=== PATIENT | female | born 1990 | race Caucasian/White ===

== ENCOUNTER → 2019-03-02 | Outpatient (CLI) | payer MEDICAID ==
--- NOTE | 2019-03-02 14:36 | RADIOLOGY REPORT (SQ) ---
EXAM DESCRIPTION: KNEE LEFT 3 VIEWS COMPLETED DATE/TIME: 03/02/2019 2:17 pm REASON FOR STUDY: HYPERMOBILITY SYNDROME (M35.7) R05 COUGH M25.559 PAIN IN UNSPECIFIED HIP M35.7 HYPERMOBILITY SYNDROME COMPARISON: None. NUMBER OF VIEWS: Three views. TECHNIQUE: AP, lateral, and sunrise patella radiographic images acquired of the left knee. LIMITATIONS: None. FINDINGS: MINERALIZATION: Normal. BONES: No acute fracture or dislocation. No worrisome bone lesions. JOINT: No effusion. SOFT TISSUES: No soft tissue swelling. No radio-opaque foreign body. OTHER: No other significant finding. IMPRESSION: NEGATIVE STUDY OF THE LEFT KNEE. NO RADIOGRAPHIC EVIDENCE OF ACUTE INJURY. TECHNICAL DOCUMENTATION: JOB ID: [id number] [employer]- All Rights Reserved Reading location - IP/workstation name: [email or web address]
--- NOTE | 2019-03-02 14:36 | RADIOLOGY REPORT (SQ) ---
EXAM DESCRIPTION: KNEE RIGHT 3 VIEWS COMPLETED DATE/TIME: 03/02/2019 2:17 pm REASON FOR STUDY: HYPERMOBILITY SYNDROME (M35.7) R05 COUGH M25.559 PAIN IN UNSPECIFIED HIP M35.7 HYPERMOBILITY SYNDROME COMPARISON: None. NUMBER OF VIEWS: Three views. TECHNIQUE: AP, lateral, and sunrise patella radiographic images acquired of the right knee. LIMITATIONS: None. FINDINGS: MINERALIZATION: Normal. BONES: No acute fracture or dislocation. No worrisome bone lesions. JOINT: No effusion. SOFT TISSUES: No soft tissue swelling. No radio-opaque foreign body. OTHER: No other significant finding. IMPRESSION: NEGATIVE STUDY OF THE RIGHT KNEE. NO RADIOGRAPHIC EVIDENCE OF ACUTE INJURY. TECHNICAL DOCUMENTATION: JOB ID: [id number] [employer]- All Rights Reserved Reading location - IP/workstation name: [email or web address]
--- NOTE | 2019-03-02 14:36 | RADIOLOGY REPORT (SQ) ---
EXAM DESCRIPTION: CHEST 2 VIEWS COMPLETED DATE/TIME: 03/02/2019 2:17 pm REASON FOR STUDY: COUGH (R05) COMPARISON: None. EXAM PARAMETERS: NUMBER OF VIEWS: two views TECHNIQUE: Digital Frontal and Lateral radiographic views of the chest acquired. RADIATION DOSE: NA LIMITATIONS: none FINDINGS: LUNGS AND PLEURA: No opacities, masses or pneumothorax. No pleural effusion. MEDIASTINUM AND HILAR STRUCTURES: No masses or contour abnormalities. HEART AND VASCULAR STRUCTURES: Heart normal size. No evidence for failure. BONES: No acute findings. HARDWARE: None in the chest. OTHER: No other significant finding. IMPRESSION: NO ACUTE RADIOGRAPHIC FINDING IN THE CHEST. TECHNICAL DOCUMENTATION: JOB ID: [id number] [employer]- All Rights Reserved Reading location - IP/workstation name: [email or web address]
--- NOTE | 2019-03-02 14:37 | RADIOLOGY REPORT (SQ) ---
EXAM DESCRIPTION: SACRUM AND COCCYX COMPLETED DATE/TIME: 03/02/2019 2:17 pm REASON FOR STUDY: HIP PAIN (M25.559), HYPERMOBILITY SYNDROME (M35.7) R05 COUGH M25.559 PAIN IN UNS PECIFIED HIP M35.7 HYPERMOBILITY SYNDROME COMPARISON: None. NUMBER OF VIEWS: Three views. TECHNIQUE: AP, lateral, and tilt views of the sacrum and coccyx. LIMITATIONS: None. FINDINGS: MINERALIZATION: Normal. BONES: No acute fracture or dislocation. No worrisome bone lesions. SOFT TISSUES: No soft tissue swelling. No foreign body. OTHER: No other significant finding. IMPRESSION: NEGATIVE STUDY OF THE SACRUM AND COCCYX. TECHNICAL DOCUMENTATION: JOB ID: [id number] [employer]- All Rights Reserved Reading location - IP/workstation name: [email or web address]
== END ==
LOC: RAD 13:22
PROVIDERS: ATTEND Nurse Practitioner Family
DX: M35.7 Hypermobility syndrome (principal); M25.552 Pain in left hip; M25.551 Pain in right hip; R05 Cough
CPT/HCPCS: 71046; 72220

== ENCOUNTER → 2019-04-06 | Outpatient (CLI) | payer MEDICAID ==
--- NOTE | 2019-04-06 12:47 | RADIOLOGY REPORT (SQ) ---
EXAM DESCRIPTION: CHEST 2 VIEWS COMPLETED DATE/TIME: 04/06/2019 12:27 pm REASON FOR STUDY: R05 COUGH, J45.998 OTHER ASTHMA COMPARISON: 03/02/2019 EXAM PARAMETERS: NUMBER OF VIEWS: two views TECHNIQUE: Digital Frontal and Lateral radiographic views of the chest acquired. RADIATION DOSE: NA LIMITATIONS: none FINDINGS: LUNGS AND PLEURA: No opacities, masses or pneumothorax. No pleural effusion. MEDIASTINUM AND HILAR STRUCTURES: No masses or contour abnormalities. HEART AND VASCULAR STRUCTURES: Heart normal size. No evidence for failure. BONES: No acute findings. HARDWARE: None in the chest. OTHER: No other significant finding. IMPRESSION: No focal airspace disease or other evidence of acute cardiopulmonary process. TECHNICAL DOCUMENTATION: JOB ID: [id number] [employer]- All Rights Reserved Reading location - IP/workstation name: [email or web address]
== END ==
LOC: RAD 11:57
PROVIDERS: ATTEND Nurse Practitioner Family
DX: J45.998 Other asthma (principal); R05 Cough
CPT/HCPCS: 71046

== ENCOUNTER → 2019-04-13 | Outpatient (CLI) | payer MEDICAID ==
[2019-04-13 10:55] LABS: ABSOLUTE EOSINOPHILS # (AUTO) 0.5 10^3/uL (0.0-0.6); ABSOLUTE LYMPHOCYTES (AUTO) 2.9 10^3/uL (0.5-4.7); ABSOLUTE MONOCYTES (AUTO) 0.9 10^3/uL (0.1-1.4); ABSOLUTE NEUT (AUTO) 4.5 10^3/uL (1.7-8.2); BASOPHILS % (AUTO) 0.4 % (0-2); EOSINOPHILS % (AUTO) 5.9 % (0-6); HEMATOCRIT 45.2 % (36.0-47.0); HEMOGLOBIN 15.4 g/dL (12.0-15.5); LYMPHOCYTES % (AUTO) 33.1 % (13-45); MEAN CORPUSCULAR HEMOGLOBIN 34.4 pg (27.0-33.4); MEAN CORPUSCULAR VOLUME 101 fl (80-97); MONOCYTES % (AUTO) 9.9 % (3-13); PLATELET COUNT 228 10^3/uL (150-450); RED BLOOD COUNT 4.48 10^6/uL (3.72-5.28); RED CELL DISTRIBUTION WIDTH 13.8 % (11.5-14.0); SEGMENTED NEUTROPHILS % (AUTO) 50.7 % (42-78); TOTAL CELLS COUNTED % (AUTO) 100 %; WHITE BLOOD COUNT 8.8 10^3/uL (4.0-10.5)
[2019-04-17 00:36] LABS: M001-IGE PENICILLIUM CHRYSOGEN <0.10 kU/L (Class 0); M002-IGE CLADOSPORIUM HERBARUM <0.10 kU/L (Class 0); M003-IGE ASPERGILLUS FUMIGATUS <0.10 kU/L (Class 0); M004-IGE MUCOR RACEMOSUS <0.10 kU/L (Class 0); M005-IGE CANDIDA ALBICANS <0.10 kU/L (Class 0); M006-IGE ALTERNARIA ALTERNATA <0.10 kU/L (Class 0); M009-IGE FUSARIUM PROLIFERATUM <0.10 kU/L (Class 0); M012-IGE AUREOBASIDI PULLULANS <0.10 kU/L (Class 0); M013-IGE PHOMA BETAE <0.10 kU/L (Class 0); M014-IGE EPICOCCUM PURPURASCEN <0.10 kU/L (Class 0)
[2019-04-17 07:16] LABS: M010-IGE STEMPHYLIUM HERBARUM <0.10 kU/L (Class 0)
== END ==
LOC: OD 10:00
PROVIDERS: ATTEND Internal Medicine Pulmonary Disease
DX: J45.909 Unspecified asthma, uncomplicated (principal)
CPT/HCPCS: 36415; 82785; 85025; 86003

== ENCOUNTER → 2019-04-17 | Outpatient (CLI) | payer MEDICAID ==
--- NOTE | 2019-04-17 16:42 | RADIOLOGY REPORT (SQ) ---
EXAM DESCRIPTION: U/S THYROID/SFT TISS HD NECK COMPLETED DATE/TIME: 04/17/2019 2:34 pm REASON FOR STUDY: R94.6 ABNORMAL RESULTS OF THYROID FUNCTION STUDIES R94.6 ABNORMAL RESULTS OF THYR OID FUNCTION STUDIES COMPARISON: None. TECHNIQUE: Dynamic and static hernandez-scale images acquired of the thyroid gland. Selected additional c olor/power Doppler images recorded. All images stored to PACS. LIMITATIONS: None. FINDINGS: RIGHT LOBE: Normal size, 4.7 x 1.4 x 1.4 cm. Homogeneous echotexture. No cystic or solid masses. LEFT LOBE: Normal size, 3.9 x 0.9 x 1.5 cm. Homogeneous echotexture. No cystic or solid masses. ISTHMUS: Normal size, 1 mm. Homogeneous echotexture. No cystic or solid masses. OTHER: No other significant finding. IMPRESSION: NORMAL THYROID ULTRASOUND. TECHNICAL DOCUMENTATION: JOB ID: [id number] [employer]- All Rights Reserved Reading location - IP/workstation name: [email or web address]
== END ==
LOC: RAD 14:07
PROVIDERS: ATTEND Nurse Practitioner Family
DX: R94.6 Abnormal results of thyroid function studies (principal); R49.0 Dysphonia; R05 Cough
CPT/HCPCS: 76536

== ENCOUNTER → 2019-05-03 | Outpatient (CLI) | payer MEDICAID ==
--- NOTE | 2019-05-03 09:12 | ST Modified Barium Swallow ---
Recommendation - Recommendations Recommendations: Recommend alternating bites and sips due to pharyngeal residue of solids. Discussed possible dysphagia treatment with patient. Should patient decide to pursue treatment, she may obtain referral from physician. Recommend continued follow up with GI. Medical Diagnoses - Medical Diagnoses Medical Diagnosis Description & ICD-10 Code(s): pt referred for difficulty swallowing (dysphagia R13.10) Other Medical Diagnoses/Co-Morbidities: per patient report: GERD, asthma, chronic bronchitis ST Modified Barium Swallow - General Date: 05/03/19 Referring Physician: Dr. Henderson Risks/Precautions: None Date of Onset: 04/28/18 - approximate onset date Reason for Referral: difficulty swallowing - History History obtained from: Patient -: Medical - per patient report: is having diffiuclty swallowing, states it's "hard to swallow", more so with solids than liquids. Reports needing to swallow multiple times to clear food from throat. Some coughing with liquids also reported. States this has been ongoing for more than 1 year. Patient also has frequent pneumonia, for which she is currently being treated, as well as chronic asthmatic bronchitis. Medications: per patient report: omeprazole, prednisone, metroprolol, symbacort, methodone, vitamin D, asthma medication Allergies: per patient report: penicillin, sulfa, mobiq, latex, ceclor - Functional Status Prior Functional Status: INDEPENDENT: feeding - independent Current Functional Limitations: feeding - requires multiple swallow to clear - Subjective Patient/caregiver goal(s): better swallow Cognitive-Linguistic Function: WNL Speech Intelligibility: WNL Current Nutritional Means: PO Current PO diet: Regular Current symptoms: Coughing, Pneumonia, c/o Globus sensation Pain: Patient reports, 1/5 - throat pain this day - Objective Assessment: Upright, Left Lateral - Food Trials Used Food trials used: Thin liquids, Pureed, Regular The patient: Was Able to Self Feed - Oral-Motor Skills Dentition: Full Velo-pharyngeal function: Unremarkable Laryngeal Function: hoarse - patient reports sore throat this day - Assessment Oral prep: Normal Labial closure: Adequate Leakage: None Mastication: Adequate Lingual Movement: Normal Oral stage: Normal for this Procedure - Pharyngeal Stage Initiation of Pharyngeal Stage Reflex: Normal Decreased laryngeal elevation: No Reduced Velopharyngeal Closure: no Reduced pressure generation: Yes Pre-swallow pooling in valleculae: None Pre-Swallow pooling in pyriforms: None Reduced Thyro-Hyoid approximation: Yes Reduced epiglottic excursion: Yes Multiple Swallows with: Cleared w/ Liquid Assist Post-swallow residulas vallecular: Moderate Post-Swallow Residuals: Posterior pharyngeal wall - moderate - Fall Risk Assessment Medications/Conditions that increase fall risks include: Antidepressants, sedatives, anti-arrhythmic, diuretic, benzodiazipenes, neuroleptics. BP regulation problems, cardiac problems, balance or gait deficits, neurological problems. Is patient considered at risk for falls: no Fall Risk Actions Taken: No action needed - Behavioral Observations During evaluation process patient: was pleasant, was cooperative, able to answer questions, provided medical history - Treatment / Educational Needs: Treatment/Education Needs: Treatment consisted of patient education on the role of the Speech Pathologist. Patient's plan of care and golas were communicated as well as scheduling and attendance policies. Recommendations for initial home program were shared. Patient demonstrated understanding and verbalized agreement. - Impression/Summary Laryngeal Penetration: No Tracheal Aspiration: no Patient presents with: Pharyngeal stage dysph. - mild Risk of Aspiration: Mild Evaluation and Findings: Patient demonstrated mildly reduced elevation and epiglottic inversion. Paitent demonstrated no aspiration, however, pharyngeal residue was noted with solids, mild for puree and moderate for regular solids. Some clearance with dry swallow seen. Residue cleared well with liquid wash. - Recommendations Solid diet recommendations: Regular Liquid Diet Modification: Thin Pt/Family education and followup with MD: Yes Dysphagia therapy with [employer]: dysphagia therapy - Discussed possible dysphagia therapy with patient to address pharyngeal exercises to increase epiglottic inversion and reduce pharyngeal residue. Should she decide to move forward with therapy, she may obtain a referral from her physician. Reflux Precautions: Taught to Patient Recommended techniques: Fully Upright During Meal, Alternate Bites/Sips Information, Precautions and Recommendations: Patient (Written), Patient (Verbal) - Plan of Care Strategies to optimize patient understanding include:: ongoing assessment of educational needs, implementation of educational strategies, and re-education. - - -: Thank you for the opportunity to work with this patient and his/her family. Should you have any questions about this patient's plan or progress, I can be reached at [phone].
--- NOTE | 2019-05-03 14:13 | RADIOLOGY REPORT (SQ) ---
EXAM DESCRIPTION: COOKIE SWALLOW COMPLETED DATE/TIME: 05/03/2019 9:00 am REASON FOR STUDY: DYSPHASIA (R47.02) R47.02 DYSPHASIA COMPARISON: None. TECHNIQUE: Videofluoroscopic swallowing examination was performed in conjunction with speech patholo gy. Videofluoroscopic imaging was obtained and reviewed and these are the findings: Subsequent air-contrast upper GI was performed with thick barium and effervescent crystals followed b y thin liquid barium. Multiple digital spot films of the esophagus and GE junction were obtained RADIATION DOSE: Total fluoro time 3 minutes. Semi fluoro images for cookie swallow, 10 series of digital spot films for esophagram images saved to PACS. LIMITATIONS: None FINDINGS: The patient was brought into the fluoro room and placed upright on a modified barium swall ow chair. The patient was then given multiple consistencies mixed with barium to swallow under live fluoroscopic video guidance. According to the Speech Pathologist there was no penetration or aspirat ion. Air contrast barium swallow was performed. Patient swallowed a 12 mm barium tablet without difficulty. Normal swallowing mechanism. No aspiration. Normal esophageal peristalsis and motility. No esophageal for GE junction mucosal irregularity. No hiatal hernia. No gastroesophageal reflux. IMPRESSION: NO EVIDENCE OF PENETRATION OR ASPIRATION. NORMAL AIR CONTRAST ESOPHAGRAM. NO HIATAL HERNIA OR GASTROESOPHAGEAL REFLUX. NO DISTAL ESOPHAGEAL S TRICTURE COMMENT: Quality ID [id number]: Final reports for procedures using fluoroscopy that document radiation exp osure indices, or exposure time and number of fluorographic images (if radiation exposure indices are not available) TECHNICAL DOCUMENTATION: JOB ID: [id number] 2010 [employer]- All Rights Reserved Reading location - IP/workstation name: [email or web address]
== END ==
LOC: RAD 08:06
PROVIDERS: ATTEND Internal Medicine Pulmonary Disease
DX: R47.02 Dysphasia (principal); R13.10 Dysphagia, unspecified; J45.909 Unspecified asthma, uncomplicated
CPT/HCPCS: 74230

== ENCOUNTER → 2019-05-14 | Outpatient (CLI) | payer MEDICAID | LOC: WI 13:14 | PROVIDERS: ATTEND Nurse Practitioner Family | DX: Z12.31 Encounter for screening mammogram for malignant neoplasm of breast (principal); Z86.018 Personal history of other benign neoplasm | CPT/HCPCS: 77063; 77067 ==

== ENCOUNTER 2019-05-18 11:13 | Emergency (ER) | payer MEDICAID ==
--- NOTE | 2019-05-18 11:21 | ER Document Report ---
ED Medical Screen (RME) - General Chief Complaint: Abscess Stated Complaint: ABSCESS - RIGHT ARM Time Seen by Provider: 05/18/19 11:15 Primary Care Provider: JAUN LARRY FNP-C [Primary Care Provider] - Follow up as needed Mode of Arrival: Ambulatory Information source: Patient Notes: 29-year-old female presents to ED for abscess to the right axilla. She states she was started on clindamycin but did not have an I&D and the abscess is much worse. She states it is now very painful. She states she went to [place] recently and got started on clindamycin because she is allergic to penicillin and sulfur, Ceclor, and latex. She states that when she went into [facility] she states that she had a stomach virus so they did not do the I&D at that time they were going wait until the stomach virus cleared up. Patient is alert and oriented respirations regular nonlabored speaking in full sentences. Smoke a pack a day denies any use of alcohol or drugs. She is on methadone for previous drug addiction. I have greeted and performed a rapid initial assessment of this patient. A comprehensive ED assessment and evaluation of the patient, analysis of test results and completion of medical decision making process will be conducted by an additional ED providers. TRAVEL OUTSIDE OF THE [place] 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 Medical History: Reports Hx Cellulitis Psychiatric Medical History: Reports: Hx Anxiety, Hx Depression, Hx Post Traumatic Stress Disorder Traumatic Medical History: Reports: None Infectious Medical History: Reports: None Past Surgical History: Reports: Hx Adenoidectomy, Hx Breast Surgery - Bladder tumors, Hx Gynecologic Surgery - LEEP, Hx Oral Surgery - Dental, Hx Tonsillectomy - Immunizations Immunizations up to date: Yes Hx Diphtheria, Pertussis, Tetanus Vaccination: Yes - 2014 Doctor's Discharge - Discharge Referrals: JAUN LARRY, [facility] [Primary Care Provider] - Follow up as needed
[2019-05-18] MEDS ORDERED: LIDOCAINE 1% INJ-PF (10 MG/ML) 30 ML SDV INJ ONE (12:43)
--- NOTE | 2019-05-18 12:50 | ER Document Report ---
HPI - HPI Time Seen by Provider: 05/18/19 11:15 Pain Level: 2 Notes: Patient is a 29-year-old female with history of asthma, pots, Jason-Danlos syndrome presents complaining of infection and probable abscess to her right axilla that is been present for the past several days. She was started on clindamycin for the past day and she has noted some improvement in her erythema. She has not noticed any streaking or discharge. She is able to eat and drink without difficulty. She is urinating normally and having normal bowel movements. No history of MRSA. Denies any headache, fever, neck pain, URI, sore throat, chest pain, palpitations, syncope, cough, shortness of breath, wheeze, dyspnea, abdominal pain, nausea/vomiting/diarrhea, urinary retention, dysuria, hematuria, or rash. - ROS Systems Reviewed and Negative: Yes All other systems reviewed and negative - REPRODUCTIVE Reproductive: DENIES: : Past Medical History - General Information source: Patient - Social History Smoking Status: Current Every Day Smoker Chew tobacco use (# tins/day): No Frequency of alcohol use: None Drug Abuse: Other Family History: Reviewed & Not Pertinent Patient has suicidal ideation: No Patient has homicidal ideation: No - Past Medical History Cardiac Medical History: Reports: Other - cheung Pulmonary Medical History: Reports: Hx Asthma, Hx Bronchitis, Hx Pneumonia EENT Medical History: Reports: None Neurological Medical History: Reports: None Renal/ Medical History: Reports: Hx Pelvic Inflammatory Disease Malignancy Medical History: Reports: Hx Cervical Cancer - Cervical dysplasia GI Medical History: Reports: Hx Gastroesophageal Reflux Disease, Hx Irritable Bowel, Hx Ulcer Musculoskeletal Medical History: Reports Hx Fibromyalgia, 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 Medical History: Reports Hx Cellulitis Psychiatric Medical History: Reports: Hx Anxiety, Hx Depression, Hx Post Traumatic Stress Disorder Traumatic Medical History: Reports: None Infectious Medical History: Reports: None Past Surgical History: Reports: Hx Adenoidectomy, Hx Breast Surgery - Bladder tumors, Hx Gynecologic Surgery - LEEP, Hx Oral Surgery - Dental, Hx Tonsillectomy - Immunizations Immunizations up to date: Yes Hx Diphtheria, Pertussis, Tetanus Vaccination: Yes - 2014 Vertical Provider Document - CONSTITUTIONAL Agree With Documented VS: Yes Notes: PHYSICAL EXAMINATION: GENERAL: Well-appearing, well-nourished and in no acute distress. HEAD: Atraumatic, normocephalic. EYES: Pupils equal round and reactive to light, extraocular movements intact, sclera anicteric, conjunctiva are normal. ENT: Nares patent and without discharge. oropharynx clear without exudates. No tonsilar hypertrophy or erythema. Moist mucous membranes. NECK: Normal range of motion, supple without lymphadenopathy LUNGS: Breath sounds clear to auscultation bilaterally and equal. No wheezes rales or rhonchi. HEART: Regular rate and rhythm without murmurs, rubs, gallops. ABDOMEN: Soft, nontender, nondistended abdomen. No guarding, no rebound. Normal bowel sounds present. No CVA tenderness bilaterally. Musculoskeletal: FROM to passive/active. Strength 5+/5. Extremities: No cyanosis, clubbing, or edema b/l. Peripheral pulses 2+. Capillary refill less than 3 seconds. NEUROLOGICAL: Normal speech, normal gait. Normal sensory, motor exams PSYCH: Normal mood, normal affect. SKIN: Rt axilla: there is an erythemic, indurated area with fluctuance. No streaks or purulence. + tenderness. The skin border was marked by another facility and there is improving erythema noted. - INFECTION CONTROL TRAVEL OUTSIDE OF THE [place] IN LAST 30 DAYS: No Course - Re-evaluation Re-evalutation: 05/18/19 Patient is an afebrile, well-hydrated, 29-year-old female who presents to the emergency department with an abscess to her right axilla needing incision and drainage. Vitals are acceptable without significant tachycardia, tachypnea, or hypoxia. PE is otherwise unremarkable. Patient is nontoxic-appearing and is tolerating p.o. without difficulty. Incision and drainage was performed without any complications and packing was placed. Wound dressing was placed and wound instructions reviewed. Wound culture was obtained. No further labs or imaging warranted. Low suspicion for any sepsis, meningitis, SJS, or other systemic emergent condition at this time. Patient to monitor symptoms for any acute changes and seek medical attention if so. She is to continue her clindamcyin that she began yesterday. Recheck with your PCM in 2-3 days. Consider consult with the general surgeon. Return to the ED with any worsening/concerning symptoms as reviewed. Patient is in agreement. Procedures - Incision and Drainage Right axilla Type: Simple Anesthetic type: 1% Lidocaine mL's of anesthetic: 5 Blade size: 11 I&D procedure: Chlorprep applied, Iodoform packing placed, Sterile dressing applied Incision Method: Incision made by scalpel Amount/type of drainage: abundant purulent Discharge - Discharge Clinical Impression: Abscess of right axilla Condition: Stable Disposition: HOME, SELF-CARE Additional Instructions: Do not shower or bathe for 24 hours. After 24 hours you may shower but no submersion of the wound under water. Keep the original dressing on the wound for 24 hours unless the drainage soaks through. Change the dressing daily thereafter and use a small amount of triple antibiotic ointment over the open wound. See your PCM in 2-3 days for recheck and continue direction for wound packing. Monitor for any signs of worsening pain or redness, streaks, and/or fever. Return to the ED if noticing any of the above symptoms or as needed. Take medications as directed. Referrals: JAUN LARRY FNP-C [Primary Care Provider] - Follow up as needed MARTINA HIGHTOWER MD [ACTIVE STAFF] - Follow up as needed
[2019-05-18 15:17] VITALS: BP 111/74
== END 2019-05-18 15:16 | disposition home or self-care (01) ==
LOC: ER 11:13
DX: L02.411 Cutaneous abscess of right axilla (principal); F17.200 Nicotine dependence, unspecified, uncomplicated
CPT/HCPCS: 99283

== ENCOUNTER 2019-05-23 13:35 | Emergency (ER) | payer MEDICAID ==
--- NOTE | 2019-05-23 13:52 | ER Document Report ---
ED Medical Screen (RME) - General Chief Complaint: Abscess Stated Complaint: ABSCESS/RIGHT ARM PIT Time Seen by Provider: 05/23/19 13:41 Primary Care Provider: JAUN LARRY FNP-C [Primary Care Provider] - Follow up as needed Mode of Arrival: Ambulatory Information source: Patient Notes: 29-year-old female presents with abscess to right axilla for almost 2 weeks. Patient reports she was first evaluated by her primary care provider and placed on clindamycin on the . She reports the area became worse so she came here to the ED on May 17 and had it drained. She reports area was packed. She reports the packing fell out the next day. She returned to her primary care provider today and was sent here for IV antibiotics. She reports some of the erythema has decreased but increased pain with firmness tracking up. She denies fever vomiting. Reports she has been taking antibiotics as prescribed. I have greeted and performed a rapid initial assessment of this patient. A comprehensive ED assessment and evaluation of the patient, analysis of test results and completion of the medical decision making process will be conducted by additional ED providers. TRAVEL OUTSIDE OF THE [place] IN LAST 30 DAYS: No - Related Data Allergies/Adverse Reactions: Cephalosporins Allergy (Verified 05/23/19 13:41) latex Allergy (Verified 05/23/19 13:41) Penicillins Allergy (Verified 05/23/19 13:41) Sulfa (Sulfonamide Antibiotics) Allergy (Verified 05/23/19 13:41) Past Medical History - Social History Chew tobacco use (# tins/day): No Drug Abuse: None Pulmonary Medical History: Reports: Hx Asthma, Hx Bronchitis, Hx Pneumonia Renal/ Medical History: Reports: Hx Pelvic Inflammatory Disease Malignancy Medical History: Reports: Hx Cervical Cancer - Cervical dysplasia GI Medical History: Reports: Hx Gastroesophageal Reflux Disease, Hx Irritable Bowel, Hx Ulcer Musculoskeltal Medical History: Reports Hx Fibromyalgia Skin Medical History: Reports Hx Cellulitis Psychiatric Medical History: Reports: Hx Anxiety, Hx Depression, Hx Post Traumatic Stress Disorder Past Surgical History: Reports: Hx Adenoidectomy, Hx Breast Surgery - Bladder tumors, Hx Gynecologic Surgery - LEEP, Hx Oral Surgery - Dental, Hx Tonsillectomy - Immunizations Immunizations up to date: Yes Hx Diphtheria, Pertussis, Tetanus Vaccination: Yes - 2014 Physical Exam - Vital signs Vitals: Temp Pulse Resp BP Pulse Ox 98.1 F 77 16 111/60 97 05/23/19 13:40 05/23/19 13:40 05/23/19 13:40 05/23/19 13:40 05/23/19 13:40 Course - Vital Signs Vital signs: Temp Pulse Resp BP Pulse Ox 98.1 F 77 16 111/60 97 05/23/19 13:40 05/23/19 13:40 05/23/19 13:40 05/23/19 13:40 05/23/19 13:40 Doctor's Discharge - Discharge Referrals: JAUN LARRY FNP-C [Primary Care Provider] - Follow up as needed
--- NOTE | 2019-05-23 13:59 | ER Document Report ---
ED General - General Chief Complaint: Abscess Stated Complaint: ABSCESS/RIGHT ARM PIT Time Seen by Provider: 05/23/19 13:41 Primary Care Provider: JAUN LARRY FNP-C [NO LOCAL MD] - Follow up as needed Mode of Arrival: Ambulatory Information source: Patient Notes: Per Pat INDEXER note 29-year-old female presents with abscess to right axilla for almost 2 weeks. Patient reports she was first evaluated by her primary care provider and placed on clindamycin on the . She reports the area became worse so she came here to the ED on May 17 and had it drained. She reports area was packed. She reports the packing fell out the next day. She returned to her primary care provider today and was sent here for IV antibiotics. She reports some of the erythema has decreased but increased pain with firmness tracking up. She denies fever vomiting. Reports she has been taking antibiotics as prescribed. 29-year-old female arrives with healing right abscess to right axilla which has Square red tape nelson which appears to be tape allergy; patient also complains of some firmness to her periphery of I&D wound. There is tenderness around this but no obvious cellulitis or abscess formation. This appears to be healing wound status post I&D. Patient reports she is began to take her clindamycin on 17 May. She had been written for this over 3 days prior by her PCP but did not get it filled because she was having some stomach issues. She began to take it and was seen on the by Remi here at this facility ER. I&D was done here. She returned to her PCP and was told to come to the ER for IV antibiotics. She has never had any tape allergy in the past. She does have a latex allergy however. Patient reports she was using a new shaver blade a cheaper brand when this abscess began. Her left axillary skin has no lesions. I advised that we will write for Bactroban nasal and Levaquin x5 days as well as clindamycin for another 5 days. Also advised her to stop smoking. She smokes 1 pack/day since she was 13 years old. She is now 29 years old. TRAVEL OUTSIDE OF THE [place] IN LAST 30 DAYS: No - HPI Onset: Other - x 5 days Onset/Duration: Persistent Quality of pain: Achy Severity: Mild Pain Level: 1 Associated symptoms: None Exacerbated by: Denies Relieved by: Denies Similar symptoms previously: No Recently seen / treated by doctor: No - Related Data Allergies/Adverse Reactions: Cephalosporins Allergy (Verified 05/23/19 13:41) latex Allergy (Verified 05/23/19 13:41) Penicillins Allergy (Verified 05/23/19 13:41) Sulfa (Sulfonamide Antibiotics) Allergy (Verified 05/23/19 13:41) Past Medical History - General Information source: Patient - Social History Smoking Status: Current Every Day Smoker Cigarette use (# per day): Yes Chew tobacco use (# tins/day): No Smoking Education Provided: Yes Frequency of alcohol use: Occasional Drug Abuse: None Family History: Reviewed & Not Pertinent Patient has suicidal ideation: No Patient has homicidal ideation: No Pulmonary Medical History: Reports: Hx Asthma, Hx Bronchitis, Hx Pneumonia Renal/ Medical History: Reports: Hx Pelvic Inflammatory Disease Malignancy Medical History: Reports: Hx Cervical Cancer - Cervical dysplasia GI Medical History: Reports: Hx Gastroesophageal Reflux Disease, Hx Irritable Bowel, Hx Ulcer Musculoskeletal Medical History: Reports Hx Fibromyalgia Skin Medical History: Reports Hx Cellulitis Psychiatric Medical History: Reports: Hx Anxiety, Hx Depression, Hx Post Traumatic Stress Disorder Past Surgical History: Reports: Hx Adenoidectomy, Hx Breast Surgery - Bladder tumors, Hx Gynecologic Surgery - LEEP, Hx Oral Surgery - Dental, Hx Tonsillectomy - Immunizations Immunizations up to date: Yes Hx Diphtheria, Pertussis, Tetanus Vaccination: Yes - 2014 Review of Systems - Review of Systems Constitutional: See HPI, Weakness EENT: No symptoms reported Cardiovascular: No symptoms reported Respiratory: No symptoms reported Gastrointestinal: No symptoms reported Genitourinary: No symptoms reported Female Genitourinary: No symptoms reported Musculoskeletal: No symptoms reported Skin: No symptoms reported, See HPI Hematologic/Lymphatic: No symptoms reported Neurological/Psychological: No symptoms reported Physical Exam - Vital signs Vitals: Temp Pulse Resp BP Pulse Ox 98.1 F 77 16 111/60 97 05/23/19 13:40 05/23/19 13:40 05/23/19 13:40 05/23/19 13:40 05/23/19 13:40 Interpretation: Normal - General General appearance: Appears well - HEENT Head: Normocephalic Eyes: Normal Conjunctiva: Normal Cornea: Normal Extraocular movements intact: Yes Eyelashes: Normal Pupils: PERRL - Respiratory Respiratory status: No respiratory distress Chest status: Nontender Breath sounds: Normal Chest palpation: Normal - Cardiovascular Rhythm: Regular Heart sounds: Normal auscultation Murmur: No Friction rub: No Beronica's crunch: No - Abdominal Inspection: Normal Distension: No distension Bowel sounds: Normal Tenderness: Nontender Organomegaly: No organomegaly - Back Back: Normal - Extremities General upper extremity: Normal inspection General lower extremity: Normal inspection - Neurological Neuro grossly intact: Yes Cognition: Normal Orientation: AAOx4 Magalie Coma Scale Eye Opening: Spontaneous [place]ie Coma Scale Verbal: Oriented [place] Coma Scale Motor: Obeys Commands [place] Coma Scale Total: 15 Speech: Normal Cranial nerves: Normal Cerebellar coordination: Normal Motor strength normal: LUE, RUE, LLE, RLE - Psychological Associated symptoms: Normal affect - Skin Skin Temperature: Warm Skin Moisture: Dry Skin Color: Other Skin irregularity: Abscess, Erythema, other - Abscess appears to be healing well and no obvious palpable underlying abscess; incision and drainage in the central aspect of her axilla appears to be healing well without signs or symptoms of infection. Patient does have a linear 6 cm x 6 cm erythemic allergic dermatitis to the tape or to the Surgicel or what ever was placed there initially to keep the area clean. Considering patient has allergy to latex I suspect this patient has a dermatitis allergic component to this as well. Course - Vital Signs Vital signs: Temp Pulse Resp BP Pulse Ox 97.5 F 67 16 121/83 99 05/23/19 17:25 05/23/19 17:25 05/23/19 13:40 05/23/19 17:25 05/23/19 17:25 - Laboratory Result Diagrams: 05/23/19 14:03 05/23/19 14:03 Laboratory results interpreted by me: 05/23/19 05/23/19 05/23/19 14:00 14:03 14:03 RBC 3.65 L MCV 100 H MCH 35.2 H Carbon Dioxide 31 H Creatinine 0.47 L Ur Leukocyte Esterase MODERATE H - Diagnostic Test Radiology reviewed: Reports reviewed Critical Care Note - Critical Care Note Total time excluding time spent on procedures (mins): 90 Comments: I advised patient to apply Bactroban to nose nightly for 5 nights and wash skin with Hibiclens soap x1 to 2 days and keep wound clean and dry. Also shortly after beginning Levaquin IV the pt exibited itching of iv site/forearm and was discontinued. Pt was given IV Benadryl by staff. Discharge - Discharge Clinical Impression: Abscess of right axilla Allergic contact dermatitis Qualifiers: Contact dermatitis trigger: adhesive Qualified Code(s): L23.1 - Allergic contact dermatitis due to adhesives Disposition: HOME, SELF-CARE Additional Instructions: Follow-up with personal doctor this week return to ER as needed if symptoms persist. Take medicines as directed scar tissue also will be present for several weeks and will feel firm and tender to palpation. Avoid any tape to the located areas because of allergic dermatitis potential. Avoid any running or jumping because of the quinolone side effects for tendons and stay out of sunshine for least 1 week after taking medications. May want to eat some yogurt because of the clindamycin and Levaquin combination with potential for diarrhea.Also because of itchiness of IV Levaquin..advoid using this medication. Prescriptions: Chlorhexidine Gluconate [Antiseptic Skin Cleanser] 5 ml TP DAILY #1 bottle Mupirocin [Bactroban 2% Ointment 22 gm] 1 applic NASL HSP PRN #1 tube PRN Reason: Clindamycin HCl [Cleocin 150 mg Capsule] 150 mg PO BID #10 capsule Levofloxacin [Levaquin 500 mg Tablet] 500 mg PO DAILY #10 tablet Referrals: JAUN LARRY FNP-C [NO LOCAL MD] - Follow up as needed
[2019-05-23 14:22] LABS: ABSOLUTE BASOPHILS # (AUTO) 0.1 10^3/uL (0.0-0.2); ABSOLUTE EOSINOPHILS # (AUTO) 0.3 10^3/uL (0.0-0.6); ABSOLUTE LYMPHOCYTES (AUTO) 2.6 10^3/uL (0.5-4.7); ABSOLUTE MONOCYTES (AUTO) 0.7 10^3/uL (0.1-1.4); ABSOLUTE NEUT (AUTO) 3.1 10^3/uL (1.7-8.2); BASOPHILS % (AUTO) 0.9 % (0-2); EOSINOPHILS % (AUTO) 4.6 % (0-6); HEMATOCRIT 36.6 % (36.0-47.0); HEMOGLOBIN 12.9 g/dL (12.0-15.5); LYMPHOCYTES % (AUTO) 38.9 % (13-45); MEAN CORPUSCULAR HEMOGLOBIN 35.2 pg (27.0-33.4); MEAN CORPUSCULAR HGB CONC 35.1 g/dL (32.0-36.0); MEAN CORPUSCULAR VOLUME 100 fl (80-97); MONOCYTES % (AUTO) 9.8 % (3-13); PLATELET COUNT 212 10^3/uL (150-450); RED BLOOD COUNT 3.65 10^6/uL (3.72-5.28); RED CELL DISTRIBUTION WIDTH 13.6 % (11.5-14.0); SEGMENTED NEUTROPHILS % (AUTO) 45.8 % (42-78); TOTAL CELLS COUNTED % (AUTO) 100 %; WHITE BLOOD COUNT 6.7 10^3/uL (4.0-10.5)
[2019-05-23 14:31] LABS: APPEARANCE,URINE CLOUDY; BILIRUBIN,URINE NEGATIVE (NEGATIVE); COLOR,URINE YELLOW; GLUCOSE, URINE NEGATIVE (NEGATIVE); KETONES,URINE NEGATIVE (NEGATIVE); LEUKOCYTE ESTERASE,URINE MODERATE (NEGATIVE); NITRITE,URINE NEGATIVE (NEGATIVE); PROTEIN,URINE NEGATIVE (NEGATIVE); URINE SPECIFIC GRAVITY 1.015; UROBILINOGEN,URINE NEGATIVE mg/dL (<2.0)
[2019-05-23 14:40] LABS: ALBUMIN 3.5 g/dL (3.5-5.0); ALKALINE PHOSPHATASE 59 U/L (38-126); ANION GAP 6 (5-19); ASPARTATE AMINO TRANSFERASE 20 U/L (14-36); BILIRUBIN,DIRECT 0.2 mg/dL (0.0-0.4); BILIRUBIN,TOTAL 0.2 mg/dL (0.2-1.3); BLOOD UREA NITROGEN 11 mg/dL (7-20); CALCIUM 8.8 mg/dL (8.4-10.2); CARBON DIOXIDE 31 mmol/L (22-30); CHLORIDE 101 mmol/L (98-107); GLUCOSE 77 mg/dL (75-110); POTASSIUM 4.3 mmol/L (3.6-5.0); TOTAL PROTEIN 6.4 g/dL (6.3-8.2)
[2019-05-23] MEDS ORDERED: LEVOFLOXACIN 750 MG/D5W RTU 750 MG/150 ML RTUPB IV ONE (15:29)
[2019-05-23] MEDS ORDERED: DIPHENHYDRAMINE HCL 50 MG/ML VIAL IV ONE (15:55)
--- NOTE | 2019-05-23 15:56 | RADIOLOGY REPORT (SQ) ---
EXAM DESCRIPTION: U/S EXTREMITY NONVASCULAR LTD COMPLETED DATE/TIME: 05/23/2019 2:36 pm REASON FOR STUDY: right axillae abscess COMPARISON: None. TECHNIQUE: Dynamic and static grayscale images acquired of the localized site of clinical concern an d recorded on PACS. Additional selected color Doppler and spectral images recorded. SITE OF CONCERN: Right axilla LIMITATIONS: None. FINDINGS: There is a hypoechoic lesion measuring about 12 x 7 x 3 mm in the subcutaneous tissues. N o large fluid collection. IMPRESSION: Small abscess right axilla. TECHNICAL DOCUMENTATION: JOB ID: [id number] [employer]- All Rights Reserved Reading location - IP/workstation name: [email or web address]
[2019-05-23 17:28] VITALS: BP 121/83
== END 2019-05-23 17:28 | disposition home or self-care (01) ==
LOC: ER 13:35
DX: L02.411 Cutaneous abscess of right axilla (principal); L23.1 Allergic contact dermatitis due to adhesives; R53.1 Weakness; J45.909 Unspecified asthma, uncomplicated; F17.210 Nicotine dependence, cigarettes, uncomplicated; Z98.890 Other specified postprocedural states; Z91.040 Latex allergy status; Z88.0 Allergy status to penicillin; Z88.1 Allergy status to other antibiotic agents; Z88.2 Allergy status to sulfonamides
CPT/HCPCS: 87040; 99285; 96374; 36415; 84703; 85025; 80053; 81001; 76882; J1200; J1956

== ENCOUNTER → 2019-07-03 | Outpatient (CLI) | payer MEDICAID | LOC: OD 12:30 | PROVIDERS: ATTEND Registered Nurse | DX: Q79.69 Other Ehlers-Danlos syndromes (principal) | CPT/HCPCS: 36415; 86021; 86225; 86235; 86431 ==

== ENCOUNTER 2019-12-24 18:51 | Emergency (ER) | payer MEDICAID ==
[2019-12-24] MEDS ORDERED: NORMAL SALINE 1000 ML 1,000 ML IV ONE (19:30)
--- NOTE | 2019-12-24 19:31 | ER Document Report ---
ED Medical Screen (RME) - General Stated Complaint: MEDICAL CLEARENCE FOR REHAB CHEST PAIN Time Seen by Provider: 12/24/19 19:29 Primary Care Provider: KATHIE YING FNP-C [Primary Care Provider] - Follow up as needed Notes: Patient presents complaining of opiate detox. Patient states she last used fentanyl 2 days ago. Patient states she last used methamphetamine a week ago. Patient also states that she was recently diagnosed with pelvic inflammatory disease and did not finish the course of treatment due to her substance abuse. Patient reports low back pain. Patient complains of shortness of breath and palpitations. Patient states she has had some sweats as well. Patient tachycardic in triage. I have greeted and performed a rapid initial assessment of this patient. A comprehensive ED assessment and evaluation of the patient, analysis of test results and completion of the medical decision making process will be conducted by additional ED providers. TRAVEL OUTSIDE OF THE [place] IN LAST 30 DAYS: No - Related Data Allergies/Adverse Reactions: Cephalosporins Allergy (Verified 05/23/19 13:41) latex Allergy (Verified 05/23/19 13:41) Penicillins Allergy (Verified 05/23/19 13:41) Sulfa (Sulfonamide Antibiotics) Allergy (Verified 05/23/19 13:41) Past Medical History Pulmonary Medical History: Reports: Hx Asthma, Hx Bronchitis, Hx Pneumonia Renal/ Medical History: Reports: Hx Pelvic Inflammatory Disease Malignancy Medical History: Reports: Hx Cervical Cancer - Cervical dysplasia GI Medical History: Reports: Hx Gastroesophageal Reflux Disease, Hx Irritable Bowel, Hx Ulcer Musculoskeltal Medical History: Reports Hx Fibromyalgia Skin Medical History: Reports Hx Cellulitis Psychiatric Medical History: Reports: Hx Anxiety, Hx Depression, Hx Post Trauma tic Stress Disorder Past Surgical History: Reports: Hx Adenoidectomy, Hx Breast Surgery - Bladder tumors, Hx Gynecologic Surgery - LEEP, Hx Oral Surgery - Dental, Hx Tonsillec evi - Immunizations Immunizations up to date: Yes Hx Diphtheria, Pertussis, Tetanus Vaccination: Yes - 2014 Physical Exam - Vital signs Vitals: Temp Pulse Resp BP Pulse Ox 98.0 F 120 H 16 125/84 98 12/24/19 19:05 12/24/19 19:05 12/24/19 19:05 12/24/19 19:05 12/24/19 19:05 - Cardiovascular Rhythm: Tachycardia Heart sounds: S1 appreciated, S2 appreciated Course - Vital Signs Vital signs: Temp Pulse Resp BP Pulse Ox 98.0 F 120 H 16 125/84 98 12/24/19 19:05 12/24/19 19:05 12/24/19 19:05 12/24/19 19:05 12/24/19 19:05 Doctor's Discharge - Discharge Referrals: KATHIE YING FNP-C [Primary Care Provider] - Follow up as needed
[2019-12-24 20:25] LABS: ABSOLUTE BASOPHILS # (AUTO) 0.1 10^3/uL (0.0-0.2); ABSOLUTE EOSINOPHILS # (AUTO) 0.1 10^3/uL (0.0-0.6); ABSOLUTE MONOCYTES (AUTO) 0.9 10^3/uL (0.1-1.4); ABSOLUTE NEUT (AUTO) 8.4 10^3/uL (1.7-8.2); BASOPHILS % (AUTO) 0.4 % (0-2); EOSINOPHILS % (AUTO) 0.8 % (0-6); HEMATOCRIT 45.7 % (36.0-47.0); HEMOGLOBIN 15.8 g/dL (12.0-15.5); LYMPHOCYTES % (AUTO) 24.1 % (13-45); MEAN CORPUSCULAR HEMOGLOBIN 33.6 pg (27.0-33.4); MEAN CORPUSCULAR HGB CONC 34.5 g/dL (32.0-36.0); MEAN CORPUSCULAR VOLUME 97 fl (80-97); PLATELET COUNT 398 10^3/uL (150-450); RED BLOOD COUNT 4.69 10^6/uL (3.72-5.28); RED CELL DISTRIBUTION WIDTH 12.9 % (11.5-14.0); SEGMENTED NEUTROPHILS % (AUTO) 67.7 % (42-78); TOTAL CELLS COUNTED % (AUTO) 100 %; WHITE BLOOD COUNT 12.4 10^3/uL (4.0-10.5)
--- NOTE | 2019-12-24 20:30 | RADIOLOGY REPORT (SQ) ---
CLINICAL INDICATION: cp. TECHNIQUE: A single portable AP view was obtained of the chest at 1958 hours. COMPARISON: None. FINDINGS: The cardiomediastinal silhouette is normal. The lungs are grossly clear. No evidence of effusion or pneumothorax. The visualized bones are unremarkable. IMPRESSION: No evidence of active intrathoracic disease.
[2019-12-24 20:31] LABS: AMORPHOUS SEDIMENT,URINE TRACE /HPF; APPEARANCE,URINE CLOUDY; BILIRUBIN,URINE NEGATIVE (NEGATIVE); COLOR,URINE AMBER; GLUCOSE, URINE NEGATIVE (NEGATIVE); KETONES,URINE NEGATIVE (NEGATIVE); LEUKOCYTE ESTERASE,URINE SMALL (NEGATIVE); NITRITE,URINE NEGATIVE (NEGATIVE); PROTEIN,URINE 30 mg/dL (NEGATIVE); URINE SPECIFIC GRAVITY 1.024
[2019-12-24 20:40] LABS: ALBUMIN 4.4 g/dL (3.5-5.0); ALKALINE PHOSPHATASE 75 U/L (38-126); ANION GAP 11 (5-19); ASPARTATE AMINO TRANSFERASE 16 U/L (14-36); BILIRUBIN,DIRECT 0.2 mg/dL (0.0-0.4); BILIRUBIN,TOTAL 0.4 mg/dL (0.2-1.3); BLOOD UREA NITROGEN 17 mg/dL (7-20); CALCIUM 10.2 mg/dL (8.4-10.2); CARBON DIOXIDE 27 mmol/L (22-30); CHLORIDE 107 mmol/L (98-107); GLUCOSE 99 mg/dL (75-110); POTASSIUM 4.3 mmol/L (3.6-5.0); TOTAL PROTEIN 7.9 g/dL (6.3-8.2)
[2019-12-24 20:48] LABS: URINE AMPHETAMINES SCREEN NEGATIVE; URINE BARBITURATES SCREEN NEGATIVE; URINE BENZODIAZEPINES SCREEN NEGATIVE; URINE COCAINE SCREEN NEGATIVE; URINE MARIJUANA (THC) SCREEN UNCONFIRMED POSITIVE; URINE METHADONE SCREEN NEGATIVE; URINE PHENCYCLIDINE SCREEN NEGATIVE
--- NOTE | 2019-12-24 21:14 | EKG REPORT ---
SEVERITY:- ABNORMAL ECG - SINUS TACHYCARDIA ST DEPRESSION, CONSIDER ISCHEMIA, INF LEADS BIATRIAL ENLARGEMENT : Confirmed by: Gurpreet Rico MD 24-Dec-2019 21:13:05
[2019-12-25 00:39] VITALS: BP 118/83
== END 2019-12-25 02:00 | disposition left against medical advice (07) ==
LOC: ER 18:51
DX: Z53.20 Procedure and treatment not carried out because of patient's decision for unspecified reasons (principal); F19.10 Other psychoactive substance abuse, uncomplicated; Z88.0 Allergy status to penicillin; Z88.2 Allergy status to sulfonamides; Z88.1 Allergy status to other antibiotic agents; J45.909 Unspecified asthma, uncomplicated
CPT/HCPCS: 36415; 71045; 80053; 80307; 81001; 83735; 84484; 84703; 85025; 93005; 93010; 99281